=== PATIENT | male | born 1960 | race Caucasian/White ===

== ENCOUNTER → 2019-07-17 13:38 | Outpatient (POV) | payer BC, SELFPAY | PROVIDERS: Visit Provider Dermatology | DX: Z00.00 Encounter for general adult medical examination without abnormal findings (principal) ==

== ENCOUNTER 2020-01-26 13:00 | Emergency (ER) | payer BC, SELFPAY ==
[2020-01-26 13:14] VITALS: BMI 25.7
--- NOTE | 2020-01-26 13:14 | XR_ITS ---
PROCEDURE: XR CHEST 2V Patient Age:59Y CLINICAL HISTORY: cough congestion. Fever. Pleuritic pain 1 week. Smoker. Lungs hyperexpanded COMPARISON: No exams were available for comparison FINDINGS: PA and lateral chest with no previous chest studies for comparison Lungs hyperexpanded with flattening diaphragm and clear increased AP dimension..-. This a reflects COPD, and emphysematous changes.. Period blunting of the CP angles bilaterally noted and most likely reflects the hyperexpansion and chronic changes a. very unlikely small effusions but difficult to totally exclude There is also minimal coarsened prominence markings at the infrahilar regions and extending through the lung bases of this could reflect this reflects chronic lung changes and possibly could reflect a mild bronchitis patterns right infrahilar region... The more hyperlucent lung most evident at the upper lung and apices-again this reflects patient's emphysema/COPD pattern. Small vague area of nodularity towards the right lung base is of doubtful significance and I suspect merely nipple shadow or overlapping vessels... However with the patient's COPD picture and presumably a significant history of smoking-CT chest with contrast if currently symptomatic; or if qualifies a screening chest CT would be recommended in follow-up. Heart, cindy and mediastinal structures satisfactory. Chest wall and T-spine of with no acute or remarkable . Finally on a lateral view shows a small calcified granuloma projected over over RML this feature can be followed IMPRESSION: No focal consolidation or acute pneumonia evident COPD. Emphysematous changes. Lungs notably hyperexpanded bilateral.. Question vague 7 mm nodular area towards the right lung base just above diaphragm-Doubt of significance and probably reflects overlapping vessel or nipple shadow. But with noting the patient's COPD and suspect long smoking history, a low threshold for follow-up for CT chest warranted; and particularly if patient's symptoms persist or progress. (If 30 pack-year smoking history patient should qualify for a screening CT chest and follow-up) Dictated by: Dustin Danielson MD 01/26/2020 18:08 Electronically signed by Dustin Danielson MD in [place] 01/26/2020 18:08
[2020-01-26 13:15] VITALS: BP 171/94; PULSE 80; RESP 20; TEMP 36.9; O2SAT 97; BMI 25.7
--- NOTE | 2020-01-26 13:25 | HMH.EDUTC ---
[facility] [place] Clinical Impression: Acute bronchitis Qualifiers: Bronchitis organism: unspecified organism Qualified Code(s): J20.9 - Acute bronchitis, unspecified Disposition: Home, Self-Care Condition on Discharge: Good Instructions: Acute Bronchitis, DI for Acute Bronchitis Additional Instructions: Drink plenty of fluids. Take tylenol or ibuprofen for pain or fever. Take the medications as directed. Follow up with your regular doctor. GO TO THE ER FOR ANY WORSENING SYMPTOMS Don't start the oral steroids until tomorrow, since you had the shot here today. Prescriptions: methylPREDNISolone [Medrol] 4 mg PO DIRECTED 6 Days #21 [email or web address] Transmission Status: Received by Induction Manager Cefdinir [Omnicef 300mg Capsule] 300 mg PO BID #20 cap Transmission Status: Received by Induction Manager Benzonatate [Tessalon Perle 100mg Cap] 100 mg PO TIDP PRN #30 cap PRN Reason: Cough Transmission Status: Received by [facility] Referrals: Provider,Referral, [Primary Care Provider] - Medical Decision Making - Medical Records Medical records reviewed: No: I reviewed the patient's medical records. - Tera Inquiry Pt receiving controlled substance: No Vital Signs: 01/26/20 13:15 01/26/20 14:16 Temperature 98.4 F 98.4 F Temperature Source Oral Pulse Rate 80 Pulse Rate [Left Brachial] 80 Respiratory Rate 20 20 Blood Pressure 171/94 H Blood Pressure [Left Arm] 171/94 H Blood Pressure Mean [Left Arm] 119 Blood Pressure Source [Left Arm] Automatic Cuff Blood Pressure Position [Left Arm] Sitting 02 Sat by Pulse Oximetry 97 Oxygen Delivery Method Room Air - Lab Data Lab Results 01/26/20 13:34: Influenza Type A Ag Negative, Influenza Type B Ag Negative Orders (Tests/Meds): ED MEDICATIONS Discontinued Medications Generic Name Dose Route Start Last Admin Trade Name Freq PRN Reason Stop Dose Admin Ceftriaxone Sodium 1 gm 01/26/20 13:43 01/26/20 14:04 Rocephin 1gm Vial IM 01/26/20 13:44 1 gm ONCE ONE Administration Protocol Lidocaine HCl 0 ml 01/26/20 13:43 01/26/20 14:04 Lidocaine 1% 10ml Mdv IM 01/26/20 13:44 2.1 ml ONCE ONE Administration Methylprednisolone Sodium Succinate 125 mg 01/26/20 13:43 01/26/20 14:04 Solu-Medrol 125mg/2ml Vial IM 01/26/20 13:44 125 mg ONCE ONE Administration ORDERS Category Date Time Status SARS-CoV-2, [facility] ([place]) Stat Lab 01/26/20 14:00 Received - Radiology Data #1 Image(s): Chest Image Reviewed: Yes I reviewed the patient's radiology image, Yes I have reviewed radiologist's interpretation Preliminary Findings: No Infiltrates Seen PROCEDURE: XR CHEST 2V Referring Doctor:BISI Patient Age:59Y CLINICAL HISTORY: cough congestion. Fever. Pleuritic pain 1 week. Smoker. Lungs hyperexpanded COMPARISON: No exams were available for comparison FINDINGS: PA and lateral chest with no previous chest studies for comparison Lungs hyperexpanded with flattening diaphragm and clear increased AP dimension..-. This a reflects COPD, and emphysematous changes.. Period blunting of the CP angles bilaterally noted and most likely reflects the hyperexpansion and chronic changes a. very unlikely small effusions but difficult to totally exclude There is also minimal coarsened prominence markings at the infrahilar regions and extending through the lung bases of this could reflect this reflects chronic lung changes and possibly could reflect a mild bronchitis patterns right infrahilar region... The more hyperlucent lung most evident at the upper lung and apices-again this reflects patient's emphysema/COPD pattern. Small vague area of nodularity towards the right lung base is of doubtful significance and I suspect merely nipple shadow or overlapping vessels... However with the patient's COPD picture and presumably a significant history of smoking-CT chest with contrast
[2020-01-26 14:08] LABS: UTC Influenza A Antigen Negative (Negative); UTC Influenza B Antigen Negative (Negative)
[2020-01-26 14:16] VITALS: BP 171/94; PULSE 80; RESP 20; TEMP 36.9; O2SAT 97
[2020-01-27 08:28] LABS: Covid-19 Nasal PCR Sendout UK Not Detected
--- NOTE | 2020-01-27 12:33 | PC.NURSE ---
notified pt at this time that covid -19 is negative .
--- NOTE | 2020-01-27 19:21 | PC.NURSE ---
SPOKE WITH PATIENT ON PHONE R/T CHEST X-RAY AND ENCOURAGED HIM TO FOLLOW UP WITH HIS PCP. PATIENT VERBALIZED UNDERSTANDING.
== END 2020-01-26 14:21 | disposition home or self-care (01) ==
PROVIDERS: Emergency Provider Nurse Practitioner Family
DX: J20.9 Acute bronchitis, unspecified (principal); F17.210 Nicotine dependence, cigarettes, uncomplicated
CPT/HCPCS: 71046; 87804; 96372; 99202; U0003